=== PATIENT | male | born 2000 | race Caucasian/White ===

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

== ENCOUNTER 2019-04-10 13:35 | Emergency (ER) | payer BC ==
[~2019-04-10] VITALS: Ht 165.1 cm; Wt 124.0 kg
[2019-04-10] MEDS ORDERED: AMPH1CAP14 (13:41)
--- NOTE | 2019-04-10 15:07 | REP ---
Urinary tract sonogram: History: Urinary tract sonography: History: Left flank pain. Question hydronephrosis. Comparison: No comparison study. Findings: Scanning at the level of the urinary bladder shows no abnormality. Renal cortical echogenicity pattern is normal bilaterally and contours are smooth. There is no evidence of hydronephrosis, cyst, mass, or calculus in either kidney. The right kidney measures 12.3 x 6.1 x 6.3 cm. Left renal dimensions are 11.8 x 6.1 x 5.1 cm. Impression: Normal urinary tract sonography. Electronically Signed by Luis Barrios MD 04/10/2019 02:58 P
[2019-04-10 15:37] VITALS: BP 135/65
== END 2019-04-10 15:38 | disposition home or self-care (01) ==
LOC: M ED 13:35
DX: S39.012A Strain of muscle, fascia and tendon of lower back, initial encounter (principal); X50.9XXA Other and unspecified overexertion or strenuous movements or postures, initial encounter; Y92.9 Unspecified place or not applicable; F84.0 Autistic disorder; Z88.8 Allergy status to other drugs, medicaments and biological substances; Z79.899 Other long term (current) drug therapy

== ENCOUNTER → 2019-05-29 | Outpatient (REF) | payer BC ==
[~2019-05-29] MED LIST: AMPH1CAP14
[2019-05-31 08:43] LABS: LDL DIRECT 103 mg/dL (0-99)
== END ==
LOC: M LAB REF 16:57
PROVIDERS: ATTEND Nurse Practitioner Adult Health
DX: E78.5 Hyperlipidemia, unspecified (principal)

== ENCOUNTER 2021-04-29 20:52 | Emergency (ER) | payer BC ==
[~2021-04-29] VITALS: Ht 170.2 cm; Wt 115.5 kg
[2021-04-29 20:53] VITALS: BP 141/79
== END 2021-04-29 21:58 | disposition left against medical advice (07) ==
LOC: M ED 20:52
DX: Z53.21 Procedure and treatment not carried out due to patient leaving prior to being seen by health care provider (principal)

== ENCOUNTER → 2021-08-11 | Outpatient (REF) | payer BC ==
[2021-08-13 08:12] LABS: LDL DIRECT 106 mg/dL (0-99)
== END ==
LOC: M LAB REF 09:59
PROVIDERS: ATTEND Nurse Practitioner Adult Health
DX: E78.00 Pure hypercholesterolemia, unspecified (principal)

== ENCOUNTER → 2021-11-19 | Outpatient (REF) | payer BC ==
[2021-11-19 13:23] LABS: HEMATOCRIT 43.8 % (42.0-52.0)
[2021-11-19 13:53] LABS: FERRITIN 284 NG/ML (26-388); IRON (FE) 100 UG/DL (65-175); PERCENT SATURATION 24.5 % (19.7-50.0); TOTAL IRON BINDING CAPACITY 408 UG/DL (250-450)
[2021-11-19 14:19] LABS: HEPATITIS B SURFACE ANTIGEN NEGATIVE (NEGATIVE)
[2021-11-19 14:47] LABS: HEPATITIS B CORE ANTIBODY IGM NEGATIVE (NEGATIVE); HEPATITIS C VIRUS ABY INDEX 0.1 INDEX (<0.8)
== END ==
LOC: M LAB REF 12:17
PROVIDERS: ATTEND Nurse Practitioner Adult Health
DX: R74.01 Elevation of levels of liver transaminase levels (principal)

== ENCOUNTER → 2022-06-10 | Outpatient (REF) | payer BC | LOC: M LAB REF 16:11 | PROVIDERS: ATTEND Nurse Practitioner Adult Health | DX: E78.00 Pure hypercholesterolemia, unspecified (principal) ==

== ENCOUNTER → 2022-07-16 | Outpatient (CLI) | payer BC | LOC: M RAD 06:38 | PROVIDERS: ATTEND Nurse Practitioner Adult Health | DX: R74.01 Elevation of levels of liver transaminase levels (principal) ==

== ENCOUNTER → 2025-01-02 | Outpatient (REF) | payer BC, OTHER ==
[2025-01-03 11:32] LABS: LDL DIRECT 75 mg/dL (<100)
== END ==
LOC: M LAB REF 14:29
PROVIDERS: ATTEND Nurse Practitioner Adult Health
DX: E78.00 Pure hypercholesterolemia, unspecified (principal)